=== PATIENT | female | born 1945 | race Caucasian/White ===

== ENCOUNTER 2017-11-20 15:48 | Emergency (ER) | payer OTHER ==
[~2017-11-20] VITALS: Ht 157.5 cm; Wt 77.1 kg
[~2017-11-20 15:48] MED LIST: HYZAAR 100-251 UDTAB; METFORMIN HCL500 MG; NORVASC5 MG; TOPROL XL50 MG; ZOCOR20 MG
== END 2017-11-20 21:06 | disposition home or self-care (01) ==
LOC: ER 15:48
DX: J11.1 Influenza due to unidentified influenza virus with other respiratory manifestations (principal)